=== PATIENT | female | born 1945 | race Caucasian/White ===

== ENCOUNTER → 2016-11-27 | Outpatient (CLI) | payer MEDICARE, BC ==
[~2016-11-27] MED LIST: ATEN-39 PO; FENO48TA2 PO; OMEP20TA11 PO; VALS1TAB28 PO; [UNRECOGNIZED DRUG - CODE] PO
== END ==
LOC: WC.BC 10:52
DX: Z12.31 Encounter for screening mammogram for malignant neoplasm of breast (principal)
CPT/HCPCS: 77063; G0202